=== PATIENT | female | born 1990 | race American Indian/Alaskan Native ===

== ENCOUNTER 2018-01-17 03:43 | Emergency (ER) | payer BC ==
[2018-01-17 03:45] VITALS: BMI 26.6
[2018-01-17 04:11] VITALS: TEMP 97.9
[2018-01-17] MEDS ORDERED: Sodium Chloride 0.9% 1,000 ML IV STA (05:12)
--- NOTE | 2018-01-17 05:16 | ED PDOC ---
Arrival/HPI - General Chief Complaint: Medical Clearance Time Seen by Provider: 01/17/18 04:14 Historian: Patient - History of Present Illness Narrative History of Present Illness (Text): 01/17/18 05:13 27 y/o F with no significant PMH, presents to the emergency department complaining of abdominal pain and right-sided back pain that began couple weeks ago and worsened a few days ago. Patient denies any sort of association to food. Reports radiation of pain from the right lower abdomen to the right lower back. She states when she eats she has a sensation of early satiety as if food is stuck in her chest. Patient also reports self medicating with Ibuprofen 800mg with no relief. She reports her last menstrual period was 1 week ago. Patient reports some chills, but denies any fever, chest pain, shortness of breath, nausea, vomiting, diarrhea, urinary symptoms, neck pain, headache, dizziness, or any other complaints. Time/Duration: > week Symptom Onset: Gradual Symptom Course: Worsening Quality: Burning Severity Level: Moderate Activities at Onset: Rest Context: Home Past Medical History - Provider Review Nursing Documentation Reviewed: Yes - Travel History Have you recently traveled outside [place] w/in the past 3 mons?: No - Infectious Disease Hx of Infectious Diseases: None - Tetanus Immunization Tetanus Immunization: Unknown - Gastrointestinal Hx Gastritis: Yes (pt states possible but unsure) - Psychiatric Hx Depression: No Hx Emotional Abuse: No Hx Physical Abuse: No Hx Substance Use: No - Anesthesia Hx Anesthesia: No - Suicidal Assessment Feels Threatened In Home Enviroment: No Family/Social History - Physician Review Nursing Documentation Reviewed: Yes Family/Social History: No Known Family HX Smoking Status: Light Smoker < 10 Cigarettes Daily Hx Alcohol Use: Yes Frequency of alcohol use: Few days per week Hx Substance Use: No Hx Substance Use Treatment: No Allergies/Home Meds Allergies/Adverse Reactions: Allergies No Known Allergies Allergy (Verified 01/17/18 04:11) Home Medications: Home Meds Medication Instructions Recorded Confirmed No Known Home Med 01/17/18 01/17/18 Review of Systems - Physician Review All systems were reviewed & negative as marked: Yes - Review of Systems Constitutional: Other (Some Chills). absent: Fevers Respiratory: absent: SOB Cardiovascular: absent: Chest Pain Gastrointestinal: Abdominal Pain. absent: Diarrhea, Nausea, Vomiting, Food Intolerance Genitourinary Female: absent: Dysuria, Frequency, Hematuria Musculoskeletal: Back Pain. absent: Neck Pain Neurological: absent: Headache, Dizziness Physical Exam Vital Signs Reviewed: Yes Vital Signs Temp Pulse Resp BP Pulse Ox 01/17/18 06:10 76 18 122/79 99 01/17/18 04:07 97.9 F 85 17 134/87 100 Temperature: Afebrile Blood Pressure: Normal Pulse: Regular Respiratory Rate: Normal Appearance: Positive for: Well-Appearing, Non-Toxic, Comfortable Pain Distress: None Mental Status: Positive for: Alert and Oriented X 3 - Systems Exam Head: Present: Atraumatic, Normocephalic Pupils: Present: PERRL Extroacular Muscles: Present: EOMI Conjunctiva: Present: Normal Mouth: Present: Moist Mucous Membranes Neck: Present: Normal Range of Motion Respiratory/Chest: Present: Clear to Auscultation, Good Air Exchange. No: Respiratory Distress, Accessory Muscle Use Cardiovascular: Present: Regular Rate and Rhythm, Normal S1, S2. No: Murmurs Abdomen: Present: Tenderness (Tenderness to the right lower quadrant), Normal Bowel Sounds. No: Distention, Peritoneal Signs, Rebound Back: Present: Normal Inspection. No: CVA Tenderness Upper Extremity: Present: Normal Inspection. No: Cyanosis, Edema Lower Extremity: Present: Normal Inspection. No: Edema Neurological: Present: GCS=15, CN II-XII Intact, Speech Normal Skin: Present: Warm, Dry, Normal Color. No: Rashes Psychiatric: Present: Alert, Oriented x 3, Normal Insight, Normal Concentration Medical Decision Making ED Course and Treatment: 01/17/18 05:12 Impression: 27 year old female presents complaining of abdominal pain and right sided back pain that began a few weeks ago and worsened in the last couple of days. Differential Diagnosis Includes But is not Limited to: Colitis Appendicitis Ectopic Pregancy PID Kidney Stone Pyelonephritis Plan: -- CT Abd Pelvis PO & IV Contrast -- Labs -- Reglan, IV Fluids, Toradol -- POC Urine Preg Test -- UA -- reassess and disposition Prior Visits: Notes and results from pervious visits were reviewed. Progress Notes: 01/17/18 05:45 Labs reviewed with leukocytosis noted. 01/17/18 06:10 Patient reexamined and reports mild relief of pain. She requests to leave AMA due to a personal emergency at home. She is advised to return to the ED when she is able to. She demonstrates acknowledgement and signs the AMA papers. She is ambulatory unassisted upon discharge. Leaving Against Medical Advice (AMA): This patient is choosing to leave against medical advice. I have personally explained to the patient that choosing to do so may result in permanent bodily harm or . I have discussed at great length that without further evaluation and monitoring there may be unforeseen circumstances and/or deterioration causing permanent bodily harm or as a result of their choice. The patient is alert, oriented, and shows the mental capacity to make clear decisions regarding the patients health care at this time. The patient continues to wish to leave against medical advice. In light of the patients decision to leave AMA, follow-up has been arranged and the patient is aware of the importance of following up as instructed. The patient has been advised that they should return to the ED immediately if they change their mind at any time, or if their condition begins to change or worsen in any way. - Lab Interpretations Microbiology Results: Microbiology Results 01/17/18 05:30 Urine,Clean Catch Urine Culture - Final No Growth (<1,000 CFU/ML) Lab Results: 01/17/18 05:45 01/17/18 05:45 Lab Results 01/17/18 05:45: PT 12.7 H, INR 1.10, APTT 30.2 01/17/18 05:45: Sodium 144, Potassium 3.8, Chloride 105, Carbon Dioxide 26, Anion Gap 17, BUN 14, Creatinine 0.7, Est GFR ( Amer) > 60, Est GFR (Non- Af Amer) > 60, Random Glucose 86, Calcium 9.9, Total Bilirubin 0.5, AST 27, ALT 36, Alkaline Phosphatase 112, Total Protein 8.3, Albumin 4.7, Globulin 3.6, Albumin/Globulin Ratio 1.3, Lipase 100 01/17/18 05:45: WBC 12.2 H, RBC 4.22, Hgb 12.7, Hct 37.4, MCV 88.6, MCH 30.1, MCHC 34.0, RDW 13.9, Plt Count 388, MPV 10.7, Gran % 52.7, Lymph % (Auto) 36.1 H , Warren % (Auto) 9.5 H, Eos % (Auto) 1.4 L, Baso % (Auto) 0.3, Gran # 6.40, Lymph # (Auto) 4.4 H, Warren # (Auto) 1.2 H, Eos # (Auto) 0.2, Baso # (Auto) 0.04 01/17/18 05:30: Urine Color Yellow, Urine Appearance Clear, Urine pH 7.0, Ur Specific Diller 1.020, Urine Protein Negative, Urine Glucose (UA) Negative, Urine Ketones Negative, Urine Blood Negative, Urine Nitrate Negative, Urine Bilirubin Negative, Urine Urobilinogen 0.2, Ur Leukocyte Esterase Trace H, Urine RBC 0 - 2, Urine WBC 1 - 3, Ur Epithelial Cells 3 - 4, Urine Bacteria Mod I have reviewed the lab results: Yes - Medication Orders Current Medication Orders: Discontinued Medications Sodium Chloride (Sodium Chloride 0.9%) 1,000 mls @ 999 mls/hr IV .Q1H1M STA Stop: 01/17/18 06:12 Last Admin: 01/17/18 05:57 Dose: 999 mls/hr eMAR Start Stop Document 01/17/18 05:57 CNR (Rec: 01/17/18 05:58 CNR [id number]) Intravenous Solution Start Date 01/17/18 Start Time 05:58 End Date 01/17/18 End time 06:58 Total Infusion Time 60 Ketorolac Tromethamine (Toradol) 15 mg IVP STAT STA Stop: 01/17/18 05:14 Last Admin: 01/17/18 05:58 Dose: 15 mg MAR Pain Assessment Document 01/17/18 05:58 CNR (Rec: 01/17/18 05:58 CNR [id number]) Pain Reassessment Is this a pain reassessment? No IVP Administration Document 01/17/18 05:58 CNR (Rec: 01/17/18 05:58 CNR [id number]) Charges for Administration # of IVP Administrations 1 Metoclopramide HCl (Reglan) 10 mg IVP STAT STA Stop: 01/17/18 05:14 Last Admin: 01/17/18 05:59 Dose: 10 mg IVP Administration Document 01/17/18 05:59 CNR (Rec: 01/17/18 05:59 CNR [id number]) Charges for Administration # of IVP Administrations 1 - Scribe Statement The provider has reviewed the documentation as recorded by the Denice Paz Provider Denice Attestation: All medical record entries made by the Denice were at my direction and personally dictated by me. I have reviewed the chart and agree that the record accurately reflects my personal performance of the history, physical exam, medical decision making, and the department course for this patient. I have also personally directed, reviewed, and agree with the discharge instructions and disposition. Disposition/Present on Arrival - Present on Arrival Any Indicators Present on Arrival: No History of DVT/PE: No History of Uncontrolled Diabetes: No Urinary Catheter: No History of Decub. Ulcer: No History Surgical Site Infection Following: None - Disposition Have Diagnosis and Disposition been Completed?: Yes Diagnosis: Abdominal pain, Abdominal pain, acute Disposition: AGAINST MEDICAL ADVICE Disposition Time: 06:12 Patient Plan: Discharge Condition: STABLE Discharge Instructions (ExitCare): Acute Abdominal Pain (ED) Referrals: FAMILY PROVIDER,NO [Primary Care Provider] - Follow up with primary Forms: [facility] ([place])
[2018-01-17 05:56] LABS: URINE BILIRUBIN NEGATIVE (NEGATIVE); URINE BLOOD NEGATIVE (NEGATIVE); URINE GLUCOSE (UA) NEGATIVE (NEGATIVE); URINE LEUKOCYTE ESTERASE TRACE Leu/uL (NEGATIVE); URINE PROTEIN NEGATIVE mg/dL (<30 mg/dL); URINE UROBILINOGEN 0.2 E.U./dL (<1 E.U./dL)
[2018-01-17 06:02] LABS: URINE APPEARANCE CLEAR (CLEAR); URINE COLOR YELLOW (YELLOW)
[2018-01-17 06:10] LABS: URINE BACTERIA MOD (NEG); URINE RBC 0 - 2 /hpf (0-2)
[2018-01-17] MEDS ORDERED: Iohexol 240 (50 ml) ONE (06:10)
[2018-01-17 06:17] LABS: BASO # 0.04 K/mm3 (0.0-2.0); BASO % 0.3 % (0.0-3.0); EOS # 0.2 (0.0-0.7); EOS % 1.4 % (1.5-5.0); GRAN # 6.4 (1.4-6.5); GRAN % 52.7 % (50.0-68.0); HEMOGLOBIN 12.7 g/dL (12.0-16.0); LYMPH # 4.4 (1.2-3.4); LYMPH % 36.1 % (22.0-35.0); MEAN CELL VOLUME 88.6 fl (80.0-105.0); MEAN CORPUSCULAR HEMOGLOBIN 30.1 pg (25.0-35.0); MEAN PLATELET VOLUME 10.7 fl (7.0-11.0); MONO # 1.2 (0.1-0.6); MONO % 9.5 % (1.0-6.0); RBC 4.22 10^6/uL (3.5-6.1); RED CELL DISTRIBUTION WIDTH 13.9 % (11.5-14.5); WHITE BLOOD COUNT 12.2 10^3/ul (4.5-11.0)
[2018-01-17 06:24] LABS: INR 1.1; PARTIAL THROMBOPLASTIN TIME 30.2 Seconds (25.1-36.5); PROTHROMBIN TIME 12.7 SECONDS (9.4-12.5)
[2018-01-17 06:30] LABS: ALB/GLOB RATIO 1.3 (1.1-1.8); ALBUMIN 4.7 g/dL (3.0-4.8); ALT/SGPT 36 U/L (7-56); AST/SGOT 27 U/L (14-36); BLOOD UREA NITROGEN 14 mg/dL (7-21); CALCIUM 9.9 mg/dL (8.4-10.5); GFR AFRICAN-AMERICAN > 60; GFR NON-AFRICAN AMERICAN > 60; LIPASE 100 U/L (23-300)
[2018-01-17 06:51] VITALS: BP 122/79; PULSE 76; RESP 18; O2SAT 99
== END 2018-01-17 06:10 | disposition left against medical advice (07) ==
LOC: ED 03:43
DX: R10.9 Unspecified abdominal pain (principal); F17.210 Nicotine dependence, cigarettes, uncomplicated
CPT/HCPCS: 80053; 81001; 83690; 85025; 85610; 85730; 87086; 96361; 96374; 96375; 99283; J1885; J2765; J7030; Q9966